=== PATIENT | female | born 1975 | race Caucasian/White ===

== ENCOUNTER 2017-06-15 00:55 | Observation (INO) | payer OTHER ==
[~2017-06-15] VITALS: Ht 162.6 cm; Wt 68.2 kg
[2017-06-15 01:24] VITALS: BP 118/73; PULSE 73; RESP 19; TEMP 98.3; O2SAT 100
[2017-06-15 04:00] VITALS: BP 99/50; PULSE 73; RESP 18; TEMP 98.3; O2SAT 97
[2017-06-15] MEDS ORDERED: SODIUM CHLORIDE 0.9% FLUSH 10 ML FLUSH IV FLUSH PRN (04:00)
[2017-06-15] MEDS ORDERED: oxyCODONE/ACETAMINOPHEN 5 MG/325 MG TAB PO PRN (04:00)
[2017-06-15] MEDS ORDERED: ONDANSETRON HCL 4 MG/2 ML VIAL IV PUSH PRN (04:15)
[2017-06-15] MEDS: SODIUM CHLOR 0.9% 1000 ML INJ 1,000 ML IV SCH ×2 (04:20→11:34)
--- NOTE | 2017-06-15 05:18 | MH ---
cc: Tyrell Ohara MD DATE OF ADMISSION: 06/15/2017 CHIEF COMPLAINT: Abdominal pain. HISTORY OF PRESENT ILLNESS: The patient is a 41-year-old female who presents with acute onset of right lower quadrant abdominal pain. She states the pain has been going on for 3 days now and has gotten intermittently progressively worse. She states the pain currently is 3/10; at episodes, it is 10/10. It is variable. It is worse with movement, better with lying still. She does have some associated nausea, denies vomiting. She does note a recent bowel movement with diarrhea yesterday morning. She was initially seen in [facility]. Further evaluation including CT scan with presence of gallstones and concern for dilated appendix with appendicolith. Her white count is 7.2. She does complain of some chills, denies fevers. She denies any weight loss. PAST MEDICAL HISTORY: The patient has no medical problems. PAST SURGICAL HISTORY: The patient has had no surgeries. ALLERGIES: NO KNOWN DRUG ALLERGIES. MEDICATIONS: The patient is not on any medications. SOCIAL HISTORY: Denies smoking, ETOH, or IVDA. FAMILY HISTORY: Denies diabetes or coronary artery disease. REVIEW OF SYSTEMS: GENERAL: Complains of chills, denies fevers. HEENT: Denies eye pain or ear pain. NECK: Denies swelling or pain. LUNGS: Denies cough or wheeze. HEART: Denies palpitations or chest pain. ABDOMEN: Complains of nausea and abdominal pain, denies vomiting. GENITOURINARY: Denies dysuria or hematuria. ENDOCRINE: Denies polyuria or polydipsia. EXTREMITIES: Denies arthralgia or myalgias. SKIN: Denies rashes or lesions. PHYSICAL EXAMINATION: GENERAL: Patient in no acute distress. VITAL SIGNS: Temperature 98.3, pulse 73, blood pressure 118/73, respiration 19, saturation 100% on room air. HEENT: Pupils equal, round and reactive. NECK: Supple. Trachea midline. LUNGS: Clear to auscultation. Bilateral expansion. HEART: S1, S2 regular rhythm. ABDOMEN: Soft. Positive tenderness to palpation in right lower quadrant, no rebound. Negative Rovsing sign. No guarding. No palpable mass. EXTREMITIES: Warm, well perfused. NEUROLOGICAL: GCS of 15. 5/5 in the lower extremities. INTEGUMENT: Mild rash on abdomen. LABORATORY DIAGNOSTIC DATA: WBC is 7.2, hemoglobin 12.3, hematocrit 35.8, platelets 233, sodium 137, potassium 3.6, chloride 103, BUN is 12, creatinine 0.9, AST 13, ALT 18, alkaline phosphatase 40, albumin 3.7, lipase 155. IMAGING: CT reviewed by myself, and review of report. Concerning for tubular structure with possible calcified right lower quadrant enlarge appendix. On my review of the CT scan, I less favor acute appendicitis with dilated appendix; appendix appears likely normal. The patient also has multiple gallstones. ASSESSMENT: The patient is a 41-year-old female with right lower quadrant abdominal pain, normal white count, no fevers. PLAN: After full clinical, radiologic and laboratory workup, patient has the above main issues. She is having acute onset of right lower quadrant abdominal pain, here today to rule out appendicitis. Discussed with patient in detail regarding etiology, pathology of acute appendicitis. I less favor acute appendicitis, and am concerned for possible constipation or enteritis as the cause of her abdominal pain. I also discussed the concern that a tumor or cancer although rare could be the etiology as her appendix does not look normal. At this point, I discussed with patient regarding observation versus a diagnostic laparoscopy and surgical intervention. At this point we agreed we will observe the patient for now, recheck her white blood cell count, and continue abdominal exams. If possible, pending laboratory results, consider p.o. challenge. If this is all normal, the patient can consider being discharged home with warning signs to look for, for acute appendicitis. I discussed a low threshold to go to the OR due to concern for unknown etiology and possible mass causing issue. Again, if any change in clinical status, fevers, increasing white count, then we will consider a diagnostic laparoscopy, possible laparoscopic appendectomy. Again, discussed with patient in detail. She states understanding and agrees with this and is stating she would like to avoid surgery if possible. I discussed risks such as missing a possible tumor. MD MELY Paulino/VICKY , 04:10 AM , 05:17 AM ESTELA
[2017-06-15 08:00] VITALS: BP 93/47; PULSE 74; RESP 16; TEMP 98.6; O2SAT 98
[2017-06-15] MEDS ORDERED: SODIUM CHLORIDE 0.9% FLUSH 10 ML FLUSH IV FLUSH SCH (09:00)
[2017-06-15] MEDS ORDERED: DOCUSATE SODIUM 50 MG/SENNA 8.6 MG TAB PO SCH (09:00)
[2017-06-15 11:11] LABS: AUTOMATED NEUTROPHIL # 3.8 TH/MM3 (1.8-7.7); BASOPHIL % 0.3 % (0.0-2.0); EOSINOPHIL # 0.2 TH/MM3 (0-0.4); EOSINOPHIL % 2.9 % (0.0-4.0); HEMATOCRIT 32.9 % (35.0-46.0); HEMOGLOBIN 11.3 GM/DL (11.6-15.3); LYMPH % 28.9 % (9.0-44.0); LYMPHOCYTE # 1.9 TH/MM3 (1.0-4.8); MEAN CELL VOLUME 86.2 FL (80.0-100.0); MEAN CORPUSCULAR HEMOGLOBIN 29.7 PG (27.0-34.0); MEAN CORPUSCULAR HGB CONC 34.5 % (32.0-36.0); MEAN PLATELET VOLUME 8.1 FL (7.0-11.0); MONO % 8.9 % (0.0-8.0); MONOCYTE # 0.6 TH/MM3 (0-0.9); PLATELET COUNT 218 TH/MM3 (150-450); RED BLOOD COUNT 3.82 MIL/MM3 (4.00-5.30); RED CELL DISTRIBUTION WIDTH 12.8 % (11.6-17.2); WHITE BLOOD COUNT 6.5 TH/MM3 (4.0-11.0)
[2017-06-15 11:14] VITALS: BP 106/63; PULSE 61; RESP 15; TEMP 98.5; O2SAT 100
[2017-06-15 12:00] VITALS: BP 104/75; PULSE 57; RESP 16; TEMP 98.3; O2SAT 99
[2017-06-15] MEDS ORDERED: BUPIVACAINE/EPINEPHRINE 0.5% PF 30 ML VIAL ONE (12:50)
--- NOTE | 2017-06-15 14:08 | HHI.PR ---
cc: Tyrell Ohara MD Subjective Subjective Notes Resting in bed Pain better now Objective Vitals/I&O Vital Signs Date Time Temp Pulse Resp B/P (MAP) Pulse Ox O2 Delivery O2 Flow Rate FiO2 06/15/17 11:14 98.5 61 15 106/63 (77) 100 Labs Laboratory Tests Test 06/15/17 09:40 White Blood Count 6.5 Red Blood Count 3.82 Hemoglobin 11.3 Hematocrit 32.9 Mean Corpuscular Volume 86.2 Mean Corpuscular Hemoglobin 29.7 Mean Corpuscular Hemoglobin Concent 34.5 Red Cell Distribution Width 12.8 Platelet Count 218 Mean Platelet Volume 8.1 Neutrophils (%) (Auto) 59.0 Lymphocytes (%) (Auto) 28.9 Monocytes (%) (Auto) 8.9 Eosinophils (%) (Auto) 2.9 Basophils (%) (Auto) 0.3 Neutrophils # (Auto) 3.8 Lymphocytes # (Auto) 1.9 Monocytes # (Auto) 0.6 Eosinophils # (Auto) 0.2 Basophils # (Auto) 0.0 CBC Comment DIFF FINAL Differential Comment Cardiovascular: Regular Lungs: Clear Abdomen: Other (very minimal RLQ tenderness with palpation; several faint areas of hives on abdomen ) Extremities: No edema A/P Assessment and Plan 41 year old female with abdominal pain; dilated appendix; normal WBC -Regular diet -If tolerated diet and no pain will plan to DC home this evening -Will get outpatient CT scan to evaluate dilated appendix in about 3 weeks then follow up in the office with Dr. Ohara -[facility] today Attending Statement patient seen at bedside I recommend diagnostic laparoscopy she is declining at this time we will do po challenge and consider d/c home f/u with repeat ct Attestation The exam, history, and the medical decision-making described in the above note were completed with the assistance of the mid-level provider. I reviewed and agree with the findings presented. I attest that I had a [id number] encounter with the patient on the same day, and personally performed and documented my assessment and findings in the medical record. Karey Gardner/First Ruthie HILTON Jun 15, 2017 14:08 Tyrell Ohara MD Jun 19, 2017 23:44
== END 2017-06-15 16:42 | disposition home or self-care (01) ==
LOC: NEDDLT 00:55 → INTOOBSV 01:05 → UNDOADMOB 01:05 → NEDA 01:05 → H6YA 11:27 → UNDODISOB 16:42
PROVIDERS: ADMIT Surgery; ATTEND Surgery
DX: R10.31 Right lower quadrant pain (principal); R82.79 Other abnormal findings on microbiological examination of urine
CPT/HCPCS: 74177; 80053; 81001; 83690; 84702; 85025; 87086; 96360; 96361; 96365; 96375; 99284; G0378; J2405; J2543; J7030; Q9967